=== PATIENT | female | born 1985 | race Caucasian/White ===

== ENCOUNTER 2019-03-28 13:08 | Day surgery (SDC) | payer OTHER | END 2019-03-28 13:54 | disposition home or self-care (01) | LOC: GIL 13:08 | DX: R14.0 Abdominal distension (gaseous) (principal); Z53.8 Procedure and treatment not carried out for other reasons ==

== ENCOUNTER 2019-06-06 11:57 | Day surgery (SDC) | payer OTHER ==
[2019-06-06] MEDS ORDERED: PROPOFOL 40 ML (15:50)
== END 2019-06-06 16:16 | disposition home or self-care (01) ==
LOC: GIL 11:57
DX: K29.70 Gastritis, unspecified, without bleeding (principal)
CPT/HCPCS: 43239; 84703; 88305; 88312